=== PATIENT | male | born 1975 | race Native Hawaiian/Other Pacific Islander ===

== ENCOUNTER 2021-03-22 17:39 | Emergency (ER) | payer OTHER ==
[~2021-03-22] VITALS: Ht 177.8 cm; Wt 74.8 kg
[2021-03-22 19:44] VITALS: BP 136/92; TEMP 98.8
== END 2021-03-22 19:44 | disposition home or self-care (01) ==
LOC: ED 17:39
DX: T51.8X1A Toxic effect of other alcohols, accidental (unintentional), initial encounter (principal); T20.56XA Corrosion of first degree of forehead and cheek, initial encounter; T20.57XA Corrosion of first degree of neck, initial encounter; T21.51XA Corrosion of first degree of chest wall, initial encounter; T20.512A Corrosion of first degree of left ear [any part, except ear drum], initial encounter; T32.0 Corrosions involving less than 10% of body surface; Y93.89 Activity, other specified; Y92.89 Other specified places as the place of occurrence of the external cause
CPT/HCPCS: 36415; 96360; 96375; 99284; J1170; J2405

== ENCOUNTER 2021-03-29 13:45 | Outpatient (CLI) | payer OTHER | END 2021-03-29 19:05 | disposition home or self-care (01) | LOC: MRI 13:45 | PROVIDERS: ATTEND Psychiatry & Neurology Neurology | DX: R41.0 Disorientation, unspecified (principal); M62.81 Muscle weakness (generalized); N39.498 Other specified urinary incontinence | CPT/HCPCS: 36415; 82565; 84520; A9576 ==

== ENCOUNTER 2022-10-02 10:38 | Outpatient (CLI) | payer OTHER | END 2022-10-02 20:02 | disposition home or self-care (01) | LOC: LAB 10:38 | PROVIDERS: ATTEND Internal Medicine | DX: I12.9 Hypertensive chronic kidney disease with stage 1 through stage 4 chronic kidney disease, or unspecified chronic kidney disease (principal); N18.31 Chronic kidney disease, stage 3a; M25.50 Pain in unspecified joint | CPT/HCPCS: 36415; 82024; 83970 ==